=== PATIENT | female | born 1990 | race Hispanic/Latino ===

== ENCOUNTER 2020-11-25 08:11 | Outpatient (CLI) | payer OTHER ==
[2020-11-26 00:34] LABS: SARS-CoV-2 PCR by NAA Not Detected (NotDetected)
== END 2020-11-25 08:12 | disposition home or self-care (01) ==
LOC: CSHLAB 08:11
PROVIDERS: ATTEND Family Medicine
DX: Z20.822 Contact with and (suspected) exposure to COVID-19 (principal)
CPT/HCPCS: U0003; U0005